=== PATIENT | female | born 1950 | race Caucasian/White ===

== ENCOUNTER 2018-06-13 09:56 | Emergency (ER) | payer OTHER ==
[~2018-06-13] VITALS: Ht 154.9 cm; Wt 99.8 kg
[2018-06-13 10:17] VITALS: Ht 154.9 cm; Wt 99.8 kg
[2018-06-13 14:22] VITALS: BP 152/82
== END 2018-06-13 15:39 | disposition home or self-care (01) ==
LOC: ED 09:56
DX: G89.29 Other chronic pain (principal); M25.561 Pain in right knee; M19.90 Unspecified osteoarthritis, unspecified site
CPT/HCPCS: J1885; J2930; J3010

== ENCOUNTER 2018-09-14 06:05 | Observation (INO) | payer OTHER ==
[2018-09-13 12:46] LABS: BASOPHIL % 0.5 % (0-2); PLATELET COUNT 287 x10^3mcL (130-400); RED CELL DISTRIBUTION WIDTH 13.6 % (11.5-14.5)
[2018-09-13 12:57] LABS: CARBON DIOXIDE 27.7 mmol/L (21-32); CHLORIDE SERUM 104 mmol/L (98-107); GLUCOSE SERUM 93 mg/dL (74-106); POTASSIUM SERUM 4.2 mmol/L (3.5-5.1); SODIUM SERUM 140 mmol/L (136-145)
[2018-09-13 12:58] LABS: CREATININE SERUM 0.8 mg/dL (0.6-1.0); GFR1 > 60 mL/min
[~2018-09-14] VITALS: Ht 157.5 cm; Wt 108.0 kg
[2018-09-14 06:30] VITALS: BP 123/70
--- NOTE | 2018-09-14 13:20 | NUR ---
RECEIVED PT AAOX4. RESP EVEN AND UNLABORED ON RA. S/P TOTAL RIGHT KNEE REPLACEMENT. SLIGHT SWELLING NOTED TO R KNEE. C/O 7/10 PAIN TO R KNEE. R KNEE BRACE WITH [facility] CARE ICE IN PLACE. PULSES PALPABLE ON ALL EXTREMITIES, SENSATION INTACT, PT ABLE TO WIGGLE TOES. BALDWIN CATHETER DRAINING YELLOW URINE TO GRAVITY. SCABS NOTED TO BUE, KARMA. PURPLE GREEN DISCOLORATION TO ABD, KARMA. IV TO L HAND, NO REDNESS OR SWELLING NOTED. HOB SLIGHLTY ELEVATED. ORIENTED TO ROOM AND SURROUNDINGS. BED IN LOW POSITION, CALL LIGHT WITHIN REACH. VISITORS AT BEDSIDE. WILL CONTINUE TO MONITOR.
[2018-09-14 13:51] VITALS: BP 118/61
--- NOTE | 2018-09-14 16:11 | NUR ---
PT RESTING IN BED WATCHING TV. NO ACUTE DISTRESS. NO C/O PAIN AT THIS TIME. R KNEE BRACE IN PLACE, WITH POLAR CARE CUBE ATTACHED. DRESSING TO R KNEE C/D/I. IVF INFUSING, NO REDNESS OR SWELLING NOTED. BALDWIN CATHETER DRAINING YELLOW URINE TO GRAVITY. CALL LIGHT WITHIN REACH. WILL CONTINUE TO MONITOR.
[2018-09-14 17:48] VITALS: BP 151/82
--- NOTE | 2018-09-14 18:56 | NUR ---
PT RESTING IN BED. NO ACUTE DISTRESS. AAOX4. C/O DIZZINESS, INSTRUCTED PT TO CALL FOR ASSISTANCE WHEN AMBULATING, PT VERBALIZED UNDERSTANDING. DENIES PAIN AT THIS TIME. DRESSING TO R KNEE C/D/I. POLAR CANE CUBE ATTACHED TO R KNEE. IVF INFUSING, NO REDNESS OR SWELLING TO IV SITE. BALDWIN CARE PROVIDED PER PROTOCOL. HOB SLIGHTLY ELEVATED. FALL PRECAUTIONS IN PLACE. BED IN LOW POSITION, CALL LIGHT WITHIN REACH. WILL ENDORSE TO ONCOMING SHIFT.
--- NOTE | 2018-09-14 19:05 | NUR ---
CARE ASSUMED FROM OUTGOING RN. PT RESTING COMFORTABLY IN BED. NO ACUTE DISTRESS NOTED. EVEN AND UNLABORED RESPIRATIONS ON RA. DENIES ANY PAIN AT THIS TIME. IV PATENT AND INTACT RUNNING FLUIDS PER EMAR. BALDWIN IN PLACE AND PATENT. POLAR CANE CUBE IN USE ON R KNEE. PT TOLERATING WELL. BED IN LOWEST POSITION. SIDE RAILS UPX2. CALL LIGHT WITHIN REACH. WILL CONTINUE TO MONITOR.
[2018-09-14 20:29] VITALS: BP 123/75
--- NOTE | 2018-09-15 00:10 | NUR ---
PT RESTING COMFORTABLY IN BED. NO ACUTE DISTRESS NOTED. EVEN AND UNLABORED RESPIRATIONS ON RA. DENIES ANY PAIN AT THIS TIME. IV PATENT AND INTACT, ANTIBIOTIC STARTED. SALTINE CRACKERS AND SODA PROVIDED TO PT. INSPECTED RIGHT KNEE. DRESSING CDI. SENSATION TO FOOT PRESENT. REAPPLIED KNEE BRACE AND POLAR CANE CUBE. BED IN LOWEST POSITION. SIDE RAILS UP X2. CALL LIGHT WITHIN REACH. WILL CONTINUE TO MONITOR.
[2018-09-15 03:51] VITALS: BP 111/61
--- NOTE | 2018-09-15 04:36 | NUR ---
PT RESTING COMFORTABLY IN BED. NO ACUTE DISTRES NOTED. EVEN AND UNLABORED RESPIRATIONS ON RA. IV PATENT AND INTACT RUNNING FLUIDS PER EMAR. REFILLED POLAR CANE CUBE WITH ICE. DRESSING CDI. PT DENIES ANY PAIN AT THIS TIME. SENSATIONS TO RLE PRESENT. BED IN LOWEST POSITION. SIDE RAILS UP X2. CALL LIGHT WITHIN REACH. WILL CONTINUE TO MONITOR.
[2018-09-15 06:42] LABS: CALCIUM 8.8 mg/dL (8.5-10.1); CARBON DIOXIDE 27.9 mmol/L (21-32); CHLORIDE SERUM 102 mmol/L (98-107); CREATININE SERUM 0.9 mg/dL (0.6-1.0); GFR1 > 60 mL/min; GLUCOSE SERUM 147 mg/dL (74-106); POTASSIUM SERUM 4.1 mmol/L (3.5-5.1); SODIUM SERUM 137 mmol/L (136-145)
--- NOTE | 2018-09-15 06:43 | NUR ---
PT SLEPT IN INTERVALS THROUGHOUT THE SHIFT. NO ACUTE CHANGES NOTED. EVEN AND UNLABORED RESPIRATIONS ON RA. IV PATENT AND INTACT RUNNING FLUIDS PER EMAR. RIGHT KNEE BRACE AND POLAR CARE CUBE IN USE. DRESSING TO RIGHT KNEE CDI, EDEMA NOTED. NO ERYTHEMA NOTED. ALL NEEDS TENDED TO AND MET. ALL SCHEDULED MEDICATION GIVEN. C/O PAIN TO RIGHT KNEE MEDICATED PER EMAR. BED IN LOWEST POSITION. SIDE RAILS UPX2. CALL LIGHT WITHIN REACH. WILL ENDORSE TO ONCOMING SHIFT.
[2018-09-15 07:15] LABS: BASOPHIL % 0.2 % (0-2); PLATELET COUNT 276 x10^3mcL (130-400); RED CELL DISTRIBUTION WIDTH 12.5 % (11.5-14.5)
--- NOTE | 2018-09-15 07:15 | NUR ---
RECEIVED PT RESTING IN BED WATCHING TV. NO ACUTE DISTRESS. AAOX4. RESP EVEN AND UNLABORED ON RA. DRESSING TO R KNEE C/D/I. POLAR CARE CUBE TO R KNEE. HOB ELEVATED. BALDWIN CATHETER DRAINING YELLOW URINE TO GRAVITY. BED IN LOW POSITION, CALL LIGHT WITHIN REACH. WILL CONTINUE TO MONITOR.
[2018-09-15 09:05] VITALS: BP 120/54
--- NOTE | 2018-09-15 12:19 | NUR ---
PATIENT WORKING WITH PHYSICAL THERAPY AT THIS TIME.
--- NOTE | 2018-09-15 14:42 | NUR ---
PT RESTING IN BED WITH EYES CLOSED. NO ACUTE DISTRESS. EASILY AROUSABLE. BREATHING EVEN AND UNLABORED ON RA. IVF INFUSING, NO REDNESS OR SWELLING NOTED. DRESSING TO R KNEE C/D/I. POLAR CARE CUBE REFILLED WITH ICE, ATTACHED TO R KNEE. HOB ELEVATED. CALL LIGHT WITHIN REACH. WILL CONTINUE TO MONITOR.
--- NOTE | 2018-09-15 15:14 | NUR ---
BALDWIN CATHETER DC'D ORDERED BY DR. JOHNSTON, 525 ML YELLOW URINE OUTPUT. [facility] ICE PACK DISCONNECTED FROM PATIENT. IV TO L HAND WITH SWELLING, IV DC'D WITH CATHETER INTACT. PATIENT WORKING WITH PHYSICAL THERAPY AT THIS TIME. WILL CONTINUE TO MONITOR.
[2018-09-15 15:23] VITALS: BP 120/54
== END 2018-09-15 16:10 | disposition home or self-care (01) | DRG 470 ==
LOC: MU 06:05 → DU 07:30 → MU 13:10
PROVIDERS: ADMIT Orthopaedic Surgery
PROC: 0SRC0J9 Replacement of Right Knee Joint with Synthetic Substitute, Cemented, Open Approach (ICD-10-PCS; principal; 2018-09-14 07:30)
DX: M17.11 Unilateral primary osteoarthritis, right knee (principal); Z68.41 Body mass index [BMI] 40.0-44.9, adult; I10 Essential (primary) hypertension; E66.01 Morbid (severe) obesity due to excess calories
CPT/HCPCS: 97110-GP; 97116-GP; 97530-GP; C1776; G0378; J0690; J1885; J2250; J2270; J2274; J2405; J2704; J3490; J7030; J7120; Q0092